=== PATIENT | female | born 1980 | race Caucasian/White ===

== ENCOUNTER 2018-09-18 12:33 | Emergency (ER) | payer MEDICAID ==
[~2018-09-18] VITALS: Ht 170.2 cm; Wt 85.6 kg
[2018-09-18 12:36] VITALS: BP 120/66; PULSE 86; RESP 16; Ht 170.2 cm; Wt 85.6 kg
--- NOTE | 2018-09-18 12:59 | ERD ---
ER Documentation Chief Complaint Chief Complaint painful urination since last PM HPI 37-year-old female, with history of diabetes, presents the emergency department, complaining of 1 day with dysuria at the end of micturition, associated with pelvic discomfort. The patient denies fever, chills, no reports of nausea or vomiting. No vaginal discharge. ROS All systems reviewed and are negative except as per history of present illness. Medications Home Meds Active Scripts Phenazopyridine Hcl* (Pyridium*) 200 Mg Tab, 200 MG PO TID PRN for URINARY PAIN, #6 TAB Prov:STEPHON CHERRY MD 09/18/18 Ciprofloxacin Hcl* (Ciprofloxacin Hcl*) 250 Mg Tablet, 250 MG PO BID for 5 Days, #10 TAB Prov:STEPHON CHERRY MD 09/18/18 Allergies Allergies: Coded Allergies: No Known Allergy (Unverified , 09/18/18) Physical Exam Vitals Vital Signs Date Temp Pulse Resp B/P (MAP) Pulse Ox O2 O2 Flow FiO2 Time Delivery Rate 09/18/18 98.5 86 16 120/66 100 12:36 (84) Physical Exam Const: No acute distress Head: Atraumatic Eyes: Normal Conjunctiva ENT: Normal External Ears, Nose and Mouth. Neck: Full range of motion. No meningismus. Resp: Clear to auscultation bilaterally Cardio: Regular rate and rhythm, no murmurs Abd: Soft, non tender, non distended. Normal bowel sounds Skin: No petechiae or rashes Back: No midline or flank tenderness Ext: No cyanosis, or edema Neur: Awake and alert Psych: Normal Mood and Affect Results 24 hrs Laboratory Tests Test 09/18/18 13:18 09/18/18 13:23 Urine Color STRAW Urine Clarity CLEAR Urine pH 7.0 Urine Specific [place] 1.001 Urine Ketones NEGATIVE mg/dL Urine Nitrite NEGATIVE mg/dL Urine Bilirubin NEGATIVE mg/dL Urine Urobilinogen NEGATIVE mg/dL Urine Leukocyte Esterase NEGATIVE Luli/ul Urine Microscopic RBC 0 /HPF Urine Microscopic WBC 0 /HPF Urine Hemoglobin 1+ mg/dL Urine Glucose NEGATIVE mg/dL Urine Total Protein NEGATIVE mg/dl Bedside Urine pH (LAB) 6.0 Bedside Urine Protein (LAB) Negative Bedside Urine Glucose (UA) Negative Bedside Urine Ketones (LAB) Negative Bedside Urine Blood Trace-lysed Bedside Urine Nitrite (LAB) Negative Bedside Urine Leukocyte Esterase (L Trace POC Beta HCG, Qualitative NEGATIVE Procedures/MDM Differential diagnosis include but not limited to: UTI, colitis, gastroenteritis, kidney stones, irritable bowel syndrome, inflammatory bowel syndrome, malabsorption syndrome, cholelithiasis, food intolerance, medication side effect, pancreatitis, diverticulitis, bowel obstruction. Low suspicion for acute abdomen Physical examination and clinical presentation consistent most likely with acute cystitis. During the ED course the patient remained stable, no new complaints. Results and clinical impression discussed with patient who agrees with management. The patient is stable to be treated outpatient and will be discharged home, some side effects of prescribed medications (headache, rash, nausea, vomiting, diarrhea, drowsiness, habituation, bleeding, hypertension, interactions with other medications) were reviewed. The patient was instructed to follow up with the primary care provider in the next 48h. If symptoms persist, worsen or new symptoms develop, then patient sh ould return to the ED immediately. Instructions explained and given directly by me to the patient with acknowledgment and demonstrated understanding. Disclaimer: Inadvertent spelling and grammatical errors are likely due to EHR/dictation software use and do not reflect on the overall quality of patient care. Also, please note that the electronic time recorded on this note does not necessarily reflect the actual time of the patient encounter. Departure Diagnosis: Primary Impression: Acute cystitis Condition: Stable Additional Instructions: Muchas el por [facility] para lemons servicio. Esperamos que en lemons visita a la naren de emergencia lemons problema medico haya sido solucionado y que se sienta mucho mejor. Para estar seguros que lemons mejoria sigue en proceso, le pedimos el favor de hacer ольга medina de seguimiento medico con lemons doctor primario en los proximos 2-4 seth. Lleve con usted estos documentos y las medicinas recetadas. Si rony sintomas empeoran, NO SE ESPERE, por favor regrese a naren de emergencia INMEDIATAMENTE. En william que usted no tenga un mdico de atencin primaria: Llame al mdico o clnica comunitaria de referencia que aparece abajo jacobo las horas de consultorio para hacer ольга medina para que le vean. CLINICAS: [facility] [phone] [facility] [phone] [facility] [phone] [facility] [phone] [place] [phone] [facility] [phone] STEPHON ROSAS MD Sep 18, 2018 12:59
[2018-09-18] MEDS ORDERED: PHEN-538 PO (13:59)
[2018-09-18] MEDS ORDERED: CIPR-193 PO (13:59)
== END 2018-09-18 14:10 | disposition home or self-care (01) ==
LOC: FTE 12:33
DX: N30.00 Acute cystitis without hematuria (principal); E11.9 Type 2 diabetes mellitus without complications; R10.2 Pelvic and perineal pain
CPT/HCPCS: 81001; 81025; Z7502; 81003; 99283